=== PATIENT | female | born 1970 | race Two or more races ===

== ENCOUNTER 2021-11-13 13:49 | Outpatient (CLI) | payer OTHER | END 2021-11-13 13:56 | disposition home or self-care (01) | LOC: MAMO-SONO 13:49 | PROVIDERS: ATTEND Obstetrics & Gynecology | DX: N60.11 Diffuse cystic mastopathy of right breast (principal); N60.12 Diffuse cystic mastopathy of left breast ==

== ENCOUNTER 2022-04-11 10:08 | Outpatient (CLI) | payer OTHER | END 2022-04-11 10:15 | disposition home or self-care (01) | LOC: SONOGRAMA 10:08 | DX: N92.1 Excessive and frequent menstruation with irregular cycle (principal) ==

== ENCOUNTER 2023-01-22 10:36 | Outpatient (CLI) | payer OTHER | END 2023-01-22 10:40 | disposition home or self-care (01) | LOC: MAMO-SONO 10:36 | PROVIDERS: ATTEND Obstetrics & Gynecology | DX: N60.11 Diffuse cystic mastopathy of right breast (principal); N60.12 Diffuse cystic mastopathy of left breast; Z12.31 Encounter for screening mammogram for malignant neoplasm of breast ==

== ENCOUNTER 2024-02-04 10:48 | Outpatient (CLI) | payer OTHER | END 2024-02-04 10:50 | disposition home or self-care (01) | LOC: MAMO-SONO 10:48 | PROVIDERS: ATTEND Obstetrics & Gynecology | DX: N60.11 Diffuse cystic mastopathy of right breast (principal); N60.12 Diffuse cystic mastopathy of left breast ==

== ENCOUNTER 2025-02-18 10:21 | Outpatient (CLI) | payer OTHER | END 2025-02-18 10:26 | disposition home or self-care (01) | LOC: MAMO-SONO 10:21 | PROVIDERS: ATTEND Obstetrics & Gynecology | DX: N60.11 Diffuse cystic mastopathy of right breast (principal); N60.12 Diffuse cystic mastopathy of left breast ==

== ENCOUNTER 2025-04-09 10:56 | Outpatient (CLI) | payer OTHER | END 2025-04-09 10:58 | disposition home or self-care (01) | LOC: SONOGRAMA 10:56 | PROVIDERS: ATTEND Obstetrics & Gynecology | DX: R10.2 Pelvic and perineal pain (principal) ==

== ENCOUNTER 2025-04-26 06:00 | Day surgery (SDC) | payer OTHER ==
[2025-04-21 09:47] VITALS: BP 147/89
[2025-04-21 10:00] LABS: BASO % 0.6 % (0.1-1.2); EOS # 0.10 (0.04-0.54); EOS % 1.9 % (0.7-7.0); LYMPH # 1.70 (1.18-3.74); LYMPH % 33.1 % (19.3-53.1); MEAN PLATELET VOLUME 9.80 fl (9.4-12.4); MONO # 0.60 (0.24-0.82); MONO % 11.7 % (4.7-12.5); NEUT # 2.69 (1.56-6.13); NEUT % 52.5 % (34.0-71.1); RED CELL DISTRIBUTION WIDTH 12.0 % (11.6-14.4)
[2025-04-21 10:06] LABS: URINE APPEARANCE Cloudy; URINE BILIRRUBIN Negative (NEGATIVE); URINE COLOR Yellow; URINE GLUCOSE Negative (NEGATIVE); URINE KETONE Negative (NEGATIVE); URINE LEUKOCYTE Large; URINE NITRATE Negative; URINE PROTEIN Negative (NEGATIVE); URINE UROBILINOGEN 0.2 E.U./dl
[2025-04-21 10:12] LABS: URINE BACTERIA 5775.4 uL (0.0-1933); URINE EPITHELIAL CELLS 174.7 uL (0.0-38.8); URINE RBC 2.4 uL (0.0-20.8); URINE WBC 369.0 uL (0.0-23.2)
[2025-04-21 10:19] LABS: URINE BLOOD TRACES; URINE CAST 0.14 uL (0.0-1.40)
[2025-04-21 10:26] LABS: INR 1.02
[2025-04-21 10:56] LABS: ALT/SGPT 22.0 U/L (12-78); AST/SGOT 22.0 U/L (15-37); BILIRUBIN TOTAL 0.36 mg/dL (0.3-1.2); BUN CREA RATIO 13.0 (7.0-25.0); CREATININE SERUM 0.93 mg/dL (0.55-1.02); GFR 62.82; GLOBULINA 3.8 G/DL (2.4-3.5); GLUCOSE FASTING 94.0 mg/dL (65-100); OSMOLALITY SERUM 284.0 MOSM/KG (275-295)
[~2025-04-26] VITALS: Ht 162.6 cm; Wt 70.3 kg
[~2025-04-26 06:00] MED LIST: NABUMETONE750 MG PO
[2025-04-26] MEDS ORDERED: POVIDONE-IODINE 118 ML BOTT TOP ONE (08:00)
[2025-04-26] MEDS ORDERED: PROMETHAZINE HCL 50 MG/ML AMPUL IM ONE (11:15)
[2025-04-26] MEDS ORDERED: MORPHINE SULFATE 4 MG/ML VIAL IV PRN (11:15)
== END 2025-04-26 13:55 | disposition home or self-care (01) ==
LOC: CIR.AMB 06:00
PROVIDERS: ATTEND Obstetrics & Gynecology
DX: N93.8 Other specified abnormal uterine and vaginal bleeding (principal); N84.0 Polyp of corpus uteri